=== PATIENT | female | born 1955 ===

== ENCOUNTER 2025-06-06 07:00 | Day surgery (SDC) | payer OTHER ==
[2025-05-30 13:48] VITALS: BP 131/70
[~2025-06-06] VITALS: Ht 152.4 cm; Wt 66.2 kg
[~2025-06-06 07:00] MED LIST: CILOSTAZOL50 MG PO; FOSAMAX70 MG PO; HORIZANT300 MG PO; IBANDRONATE SO150 MG PO; PRAVASTATIN SOD40 MG PO; PREVACID30 MG PO
[2025-06-06] MEDS ORDERED: CEFAZOLIN SODIUM 1,000 MG VIAL ONE (07:54)
[2025-06-06] MEDS ORDERED: GENTAMICIN SULFATE 40 MG/ML VIAL ONE (08:54)
[2025-06-06] MEDS ORDERED: CHLORHEXIDINE GLUCONATE 120 ML BOTTLE TOP ONE (08:54)
[2025-06-06] MEDS ORDERED: LIDOCAINE HCL 1%/EPINEPHRINE 20ML VIAL IJ ONE (09:45)
[2025-06-06] MEDS ORDERED: MACROBID 100 M100 MG PO (11:08)
[2025-06-06] MEDS ORDERED: ACETAMINOPHEN-1 EAC2 PO (11:09)
[2025-06-06 14:17] VITALS: BP 140/51; O2SAT 100
== END 2025-06-06 15:25 | disposition home or self-care (01) ==
LOC: CIR.AMB 07:00
PROVIDERS: ATTEND Obstetrics & Gynecology Gynecology
DX: N81.5 Vaginal enterocele (principal); N81.6 Rectocele; N81.11 Cystocele, midline; Z88.8 Allergy status to other drugs, medicaments and biological substances